=== PATIENT | male | born 1960 | race Caucasian/White ===

== ENCOUNTER 2017-01-04 11:54 | Emergency (ER) | payer OTHER ==
[~2017-01-04] VITALS: Ht 175.3 cm; Wt 75.5 kg
[2017-01-04 11:56] VITALS: BP 155/82; PULSE 94; RESP 20; O2SAT 98
[2017-01-04] MEDS ORDERED: 0.9% Sodium Chloride 1,000 ML IV ONE (12:51)
--- NOTE | 2017-01-04 12:53 | ED.REPORT ---
HPI-Back Pain 40 and Over Date of Service Jan 04, 2017 ED Provider: History of Present Illness: 56-year-old male here for back and abdominal pain. Abdominal pain started a week ago, was seen at . He had a CT and blood work, CAT scan came back essentially negative. Back pain started a week ago it radiates down bilateral legs. He was seen for this in [place] a few days ago diagnosed with sciatica. Dilaudid in a emergency room and sent home. At this point both of them are hurting, his back and his abdomen. He has had some loose stools that he states started today. There was some blood in the stool. He is nauseous and vomiting. He is having urinary urgency but no pain. He is able to eat without vomiting but that intake increases his abdominal pain. His bilateral side pain which movement increases. Movement also increases his low back pain. The radiation down his legs is slightly improved in the last week. He has a history of sciatica his back pain is not new to him. He has not lost control of bowel or bladder but he cannot get a quick enough to get to the bathroom. No known fever. He has a IV drug user asked used meth a week ago. He is homeless but states his home base will be [place] Nursing Notes Stated Complaint: LOW BACK PAIN,VOMITING,ISSUES WITH BLADDER/BOWELS Chief Complaint: Back Pain or Injury Nursing Notes Reviewed: Yes Allergies: Coded Allergies: No Known Allergies (Unverified , 01/04/17) General Time Seen by MD: 12:38 Chief Complaint Generalized pain, Lumbar pain, Flank pain right, Flank pain left Hx Obtained From: Patient, Spouse Arrived By: Walk-in Sudden in Onset?: Yes Onset Occurred: 1 week ago Symptom Duration: 1 week Severity: Current: Severe Severity: Maximum: Severe Recent Healthcare: Recent doctor visit Similar Sx Previous: Yes Risk Factors Risk Notes: IV drug use Past Medical History Past Medical History Notes: sciatica Review of Systems Constitutional: Denies: Chills, Fatigue, Fever Respiratory: Denies: Dyspnea on exertion Cardiovascular: Denies: Chest pain GI: Reports: Abdominal pain, Diarrhea, Hematochezia, Nausea, Vomiting, Denies: Constipation Male: Reports Flank pain, Reports Urinary frequency, Reports Urinary urgency , Denies Dysuria, Denies Testicular pain Musculoskeletal: Reports: Back pain Complete sys rev & neg: except as marked. Physical Exam Initial Vital Signs Vital Signs (First) Date Time Temp Pulse Resp B/P Pulse Ox O2 Delivery O2 Flow Rate FiO2 01/04/17 11:56 36.8 94 20 155/82 98 Room Air Initial VS: Vital signs normal General/Constitutional: Awake, Alert Distress / Hydration: Positive: Distress mild Respiratory / Chest: Breath sounds NL, Breath sounds = bilat, No respiratory distress, No rales, No rhonchi, No wheezing Cardiovascular: Heart rate NL, Regular rhythm, Heart sounds NL, No murmurs, Peripheral circulation NL Abdomen: Atraumatic, Soft, No guarding, No rebound, BS normoactive, No hernia, No palpable mass, No pulsatile mass Tenderness/Guarding/Rebound: Positive: Tender LLQ... (Severe), Tender LUQ... ( Severe), Tender RLQ... (Severe), Tender RUQ... (Severe), Tender epigastric, Tender periumbilical 2 external hemorrhoids present, mild guiac positive Back: Atraumatic, Inspection NL, Full range of motion, Painless range of motion , No midline vertebral tend, No paraspinal tenderness, No muscle spasm, Straight leg raise neg, No CVA tenderness left musculature lower lumbar tender LE strenght equal bilat. patellar reflexes 3+ intact bilat. Neurologic: Oriented X3, Speech NL, No motor deficits, No sensory deficits, Reflexes equal bilat Neck: Atraumatic, Supple, No meningismus, Full range of motion, No swelling, Non-tender, No midline vertebral tend, No masses, No crepitus Lower Extremity / Pelvis / MS: Inspection NL, No swelling, Non-tender, No erythema, No deformity, Neurologic intact, Vascular intact, No edema Skin: Color NL, Warm, Dry, Turgor NL Rectum / Perineum Abnl: Positive: Hemorrhoid external rectal tone intact Head / Eyes: Atraumatic, Normocephalic, PERRL, EOMI Interpretation & Diagnostics Interpretation & Diagnostics: PROCEDURE: CT ABDOMEN AND PELVIS WITH CONTRAST ([id number]) INDICATIONS: abd and low back pain TECHNIQUE: After the administration of intravenous contrast, 5 mm thick sections acquired from the diaphragm to the symphysis. 5 mm coronal and sagittal reformats were acquired. For radiation dose reduction, the following was used: automated exposure control, adjustment of mA and/or kV according to patient size. COMPARISON: None. FINDINGS: Image quality: Excellent. ABDOMEN: Lung bases: Right basilar atelectasis. Heart size is normal. There is a small hiatal hernia. Solid organs: Liver and spleen are normal in size and enhancement. Gallbladder is normal. Biliary system is non dilated. Pancreas enhances normally. No adrenal nodules. Kidneys demonstrate normal size and enhancement, without hydronephrosis. Peritoneum and bowel: A large amount of stool is present in colon. Bowel loops demonstrate normal wall thickness and caliber. No free air. Appendix is normal. A small amount of free fluid is present. Nodes and vessels: No retroperitoneal or mesenteric adenopathy by size criteria. Aorta and inferior vena cava are normal in size. Miscellaneous: No ventral hernias. PELVIS: Genitourinary: Bladder wall thickness is normal. There is a small amount of free fluid in pelvis. Miscellaneous: No inguinal hernias or adenopathy. Bones: No suspicious bony lesions. No vertebral body compression fractures. IMPRESSION: 1. A small moderate free fluid is present, which is an abnormal finding. No inflammatory etiology identified. No evidence for small bowel obstruction. 2. Large amount of stool in colon. Lab Results Interpretation Result Diagram: 01/04/17 1315 01/04/17 1315 Test 01/04/17 13:15 01/04/17 14:15 White Blood Count 10.3th/mm3 (3.8-10.1) Red Blood Count 4.22mil/mm3 (4.40-5.80) Hemoglobin 12.8g/dL (13.8-17.2) Hematocrit 37.2% (41.0-50.0) Mean Corpuscular Volume 88.2fL (81-100) Mean Corpuscular Hemoglobin 30.3pg (27.0-35.0) Mean Corpuscular Hemoglobin Concent 34.4% (32.0-37.0) Red Cell Distribution Width 14.8% (12.3-15.4) Platelet Count 554bil/L (150-400) Neutrophils (%) (Auto) 80.8% (40-74) Lymphocytes (%) (Auto) 8.7% (14-46) Monocytes (%) (Auto) 8.8% (4-12) Eosinophils (%) (Auto) 0.6% (0-5) Basophils (%) (Auto) 0.3% (0-3) Sodium Level 137mEq/L (134-144) Potassium Level 3.5mEq/L (3.5-5.2) Chloride Level 93mEq/L (97-108) Carbon Dioxide Level 29mmol/L (18-29) Blood Urea Nitrogen 9mg/dL (6-24) Creatinine 0.71mg/dL (0.76-1.27) Estimat Glomerular Filtration Rate 122mL/min (>59) Glucose Level 126mg/dL (60-99) Lactic Acid Level 1.6mmol/L (0.4-2.0) Calcium Level 9.1mg/dL (8.5-10.1) Magnesium Level 2.2mg/dL (1.6-2.6) Total Bilirubin 0.5mg/dL (0.0-1.2) Aspartate Amino Transf (AST/SGOT) 24U/L (0-50) Alanine Aminotransferase (ALT/SGPT) 29U/L (0-44) Alkaline Phosphatase 78U/L (25-150) Total Protein 7.5g/dL (6.4-8.4) Albumin 3.0g/dL (3.4-5.0) Lipase 26U/L (13-60) Hold Carpenter Top Tube Received (Received) Urine Color Yellow (YELLOW) Urine Appearance Clear (CLEAR,HAZY) Urine pH 8.0 (5.0-8.0) Urine Specific [place] <1.005 (1.003-1.035) Urine Protein Tracemg/dL (NEG,TRACE) Urine Glucose (UA) Negativemg/dL (NEGATIVE) Urine Ketones Negativemg/dL (NEGATIVE) Urine Occult Blood Negative (NEGATIVE) Urine Nitrite Negative (NEGATIVE) Urine Bilirubin Negative (NEGATIVE) Urine Urobilinogen Normalmg/dL (NORMAL) Urine Leukocyte Esterase Negative (NEGATIVE) Urine RBC 0-2/hpf (0-2) Urine WBC 0-5/hpf (0-5) Urine Epithelial Cells Occasional/hpf (NONE-MOD) Urine Crystals Amorphous urates (NONE Urine Bacteria None/hpf (NONE-FEW) Urine Hyaline Casts None/lpf (NONE) Urine Granular Casts None seen (NONE SEEN) Urine Waxy Casts None seen (NONE SEEN) Urine Red Blood Cell Casts None seen (NONE SEEN) Urine White Blood Cell Casts None seen (NONE SEEN) Urine Mucus None seen (None Seen) Urine Trichomonas None seen (NONE SEEN) Urine Yeast None (NONE SEEN) Urinalysis Comment None Urine Culture Reflexed Not indicated Urine Opiates Screen Negative Urine Methadone Screen Negative Urine Barbiturates Screen Negative Urine Amphetamines Screen Negative Urine Benzodiazepines Screen Negative Urine Cocaine Metabolite Screen Negative Urine Cannabinoids Screen Negative Re-Eval/Medical Decision Med Decision/Clinical Course CT shows free fluid in abdomen small amount this is unchanged from his previous CAT scan. 1850- Discussed case with Dr. Carter in ER. Patient now has a fever 100.4. He lost control of the bladder while Dr. Carter was in the room evaluating him. MRI was ordered. Dr carter assumes care 2149, awaiting MRI. Radha Paulino Jan 04, 2017 12:53
[2017-01-04] MEDS ORDERED: Ondansetron 2 mg/mL 2 mL Inj IVPUSH ONE (12:55)
[2017-01-04 13:28] LABS: BASOPHILS % (AUTO) 0.3 % (0-3); EOSINOPHILS % (AUTO) 0.6 % (0-5); MONOCYTES % (AUTO) 8.8 % (4-12); Mean Corpuscular Hemoglobin 30.3 pg (27.0-35.0); Mean Corpuscular Volume 88.2 fL (81-100); NEUTROPHILS % (AUTO) 80.8 % (40-74); Platelet Count 554 bil/L (150-400)
[2017-01-04 13:58] LABS: Magnesium 2.2 mg/dL (1.6-2.6)
[2017-01-04] MEDS ORDERED: HYDROmorphone 1 mg/mL Inj IVPUSH ONE ×3 (14:30→20:40)
[2017-01-04 16:43] VITALS: BP 157/86; PULSE 94; RESP 17; O2SAT 94
[2017-01-04 17:13] LABS: APPEARANCE,URINE CLEAR (CLEAR,HAZY); COLOR,URINE YELLOW (YELLOW); OCCULT BLOOD,URINE NEGATIVE (NEGATIVE); UROBILINOGEN,URINE NORMAL (NORMAL)
--- NOTE | 2017-01-04 17:59 | DRSVH ---
PROCEDURE: CT ABDOMEN AND PELVIS WITH CONTRAST ([id number]) INDICATIONS: Abdominal and low back pain. TECHNIQUE: After the administration of intravenous contrast, 5 mm thick sections acquired from the diaphragm to the symphysis. 5 mm coronal and sagittal reformats were acquired. For radiation dose reduction, the following was used: automated exposure control, adjustment of mA and/or kV according to patient siz e. COMPARISON: None. FINDINGS: Image quality: Excellent. ABDOMEN: Lung bases: Right basilar atelectasis. Heart size is normal. There is a small hiatal hernia. Solid organs: Liver and spleen are normal in size and enhancement. Gallbladder is normal. Biliary system is non dilated. Pancreas enhances normally. No adrenal nodules. Kidneys demonstrate normal size, without hydronephrosis. Kidneys may have subtle striated enhancement. Peritoneum and bowel: A large amount of stool is present in colon. Bowel loops demonstrate normal wa ll thickness and caliber. No free air. Appendix is normal. A small amount of free fluid is present. Nodes and vessels: No retroperitoneal or mesenteric adenopathy by size criteria. Aorta and inferior vena cava are normal in size. Miscellaneous: No ventral hernias. PELVIS: Genitourinary: Bladder wall thickness is normal. There is a small amount of free fluid in pelvis. Miscellaneous: No inguinal hernias or adenopathy. Bones: No suspicious bony lesions. No vertebral body compression fractures. IMPRESSION: 1. A small small free fluid is present, which is an abnormal finding. No inflammatory etiology identi fied. No evidence for small bowel obstruction. 2. Large amount of stool in colon. 3. Equivocal striated enhancement in kidneys bilaterally. Recommend clinical correlation for urinary tract infection and early pyelonephritis. 4. Small hiatal hernia. Dictated by: Karon Alvarez M.D. on 01/04/2017 at 17:58 Transcribed by: DREW on 01/04/2017 at 18:00 Approved by: Karon Alvarez M.D. on 01/04/2017 at 22:34
[2017-01-04 18:52] VITALS: BP 131/67; PULSE 78; RESP 16; O2SAT 98
[2017-01-04 21:45] VITALS: BP 149/80; PULSE 104; RESP 17; O2SAT 95
[2017-01-05 00:52] VITALS: BP 154/84; PULSE 70; RESP 18; O2SAT 96
[2017-01-05] MEDS ORDERED: 0.9% Sodium Chloride 1,000 ML IV ONE (00:57)
[2017-01-05] MEDS ORDERED: Cefepime Inj 2,000 MG in Dextrose 5% Minibag Plus 100 ML IV ONE (01:00)
[2017-01-05] MEDS ORDERED: Vancomycin Dose per Pharmacist XX ONE (01:00)
[2017-01-05] MEDS ORDERED: HYDROmorphone 1 mg/mL Inj IVPUSH ONE ×2 (01:25→01:30)
[2017-01-05] MEDS ORDERED: Vancomycin Inj 1,500 MG in 0.9% Sodium Chloride 500 ML IV ONE (01:30)
[2017-01-05 02:53] VITALS: BP 141/84; PULSE 90; RESP 18; O2SAT 97
--- NOTE | 2017-01-05 08:18 | DRSVH ---
PROCEDURE: MRI LUMBAR SPINE WITH AND WITHOUT CONTRAST ([id number]) INDICATIONS: Back pain, fever, iv drug user, loss of bladder. TECHNIQUE: Noncontrast sagittal T1 spin echo and T2 fast spin echo, sagittal STIR, axial T1 and T2 fast spin ech o through the lumbar spine. In cases with scoliosis, additional coronal T2 fast spin echo may be per formed. After the administration of contrast, sagittal and axial T1 spin echo with fat saturation th rough the lumbar spine. COMPARISON: None. FINDINGS: Preliminary report by shift lab technician radiology Image quality: Excellent. Alignment and curvature: There is dextroconvex scoliosis with mild retrolisthesis at L1-2 and L2-3, anterolisthesis L4-5 and retrolisthesis L5-S1. Marrow: Marked bone marrow edema and post contrast-enhancement in the L2 and L3 vertebral segments. Spinal cord: Conus medullaris terminates at the L1 level. Visualized spinal cord demonstrates louise l signal, without suspicious enhancement. There is however marked increased T2 signal within the L2-3 disc but without abnormal enhancement. Posterior to the disc is an epidural fluid collection showing rim enhancement consistent with abscess approximately 5 x 6 mm x 2 cm in length. There is additional dural enhancement above and below this level, extending behind the vertebral bodies from L1-L4. Paraspinous soft tissues: Paravertebral edema and abnormal enhancement is evident around the L2-3 dis c level, left greater than right, involving the left psoas muscle. No distinct paraspinous abscess.. L1-L2: Disc degeneration with broad-based annular bulge. The findings create mild central canal and bilateral foraminal stenosis. L2-L3: Disc narrowing with increased T2 signal throughout the disc but no abnormal enhancement to ind icate discitis. Epidural abscess posterior to the disc level again noted. There is secondary moderate central canal stenosis, mild right foraminal stenosis and moderate left foraminal stenosis. L3-L4: Disc degeneration with broad-based annular bulge and facet arthropathy. There is moderate cent ral canal and moderately severe bilateral foraminal stenosis.. L4-L5: Disc degeneration with broad-based annular bulge and facet arthropathy. There is moderate cent ral canal stenosis. Moderate right and mild left foraminal stenosis. L5-S1: Disc degeneration with broad-based annular bulge. Bilateral facet arthropathy. There is mild c entral canal stenosis and moderate bilateral foraminal stenosis. IMPRESSION: 1. Scoliosis and multilevel malalignment increasing mechanical stenoses at multiple levels. 2. Epidural abscess posterior to the L2-3 disc level with probable osteomyelitis of L2 and L3 vertebr al bodies. Prominent edema in the paraspinous region at that level, left greater than right. 3. Multilevel degenerative disc disease creating mild to moderate central canal and foraminal stenosi s as described by level above. Findings are concordant with the preliminary report. Dictated by: Norris Colon M.D. on 01/05/2017 at 7:53 Approved by: Norris Colon M.D. on 01/05/2017 at 8:16
== END 2017-01-05 02:45 | disposition short-term general hospital (02) ==
LOC: SED 11:54 → UNDOADMOB 23:31 → OSC 23:31 → SED 01-05 02:45
DX: M54.5 Low back pain (principal); R10.9 Unspecified abdominal pain; R50.9 Fever, unspecified; R32 Unspecified urinary incontinence
CPT/HCPCS: 36415; 72158; 74177; 80053; 81000; 83605; 83690; 83735; 85025; 87040; 96361; 96374; 96375; 96376; 99285; A9585; G0480; J1170; J1885; J2405; J7030; Q9967

== ENCOUNTER 2017-01-23 08:32 | Emergency (ER) | payer OTHER ==
[~2017-01-23] VITALS: Ht 175.3 cm; Wt 75.5 kg
--- NOTE | 2017-01-23 08:33 | ED.REPORT ---
HPI-General Illness Date of Service Jan 23, 2017 ED Provider: Vivek Coto Patient is a 56 year old male with a hx of IV drug use and a recently diagnosed epidural abscess who presents to the ED via EMS for low grade fever and altered mental status. Per , he has been having hallucinations. He denies nausea, vomiting, or any other symptoms. He reports he was discharged 2 days ago from [facility] s/p a biopsy of his abscess. He was put on moxifloxacin and gabapentin. Per records, he was diagnosed with findings of osteomyelitis/discitis with epidural abscess at the L1/2 level, as well as significant degenerative disease throughout on January 04 (19 days ago) in this department. He denies meth use since being discharged. Nursing Notes Stated Complaint: BACK PAIN Nursing Notes Reviewed: Yes Allergies: Coded Allergies: No Known Allergies (Unverified , 01/23/17) General Time Seen by MD: 08:38 Chief Complaint Altered mental status Hx Obtained From: Patient, EMS Arrived By: Ambulance Sudden in Onset?: Yes Onset Occurred: Onset unknown Recent Healthcare: Recent doctor visit, Recent hospitalization, Previous surgery Past Medical History Past Medical History Notes: sciatica Past Medical History Epidural abscess Past Surgical History Epidural abscess biopsy Smoking History Current Every Day Smoker Social History Alcohol Use: "Social" Drug Use: IV drugs, Meth Other Social History: Smokeless tobacco, , Local resident Ambulatory Status Independent Review of Systems Full Review of Systems Constitutional: Reports: Fever GI: Denies: Nausea, Vomiting Psychiatric: Reports: Change mental status Complete sys rev & neg: except as marked. Physical Exam Vital Signs Vital Signs Date Time Temp Pulse Resp B/P Pulse Ox O2 Delivery O2 Flow Rate FiO2 01/23/17 12:31 88 18 138/76 96 Room Air 01/23/17 10:12 109 15 133/78 93 Room Air 01/23/17 08:51 95 20 118/76 96 Room Air 01/23/17 08:37 36.8 98 22 119/68 95 Room Air Initial VS: Reviewed, Vital signs normal Head / Eyes: Atraumatic, Normocephalic Neck: Full range of motion Respiratory: No respiratory distress Cardiovascular: Regular rate & rhythm, Heart sounds normal Skin: Warm, Dry Psychiatric: Mood/affect normal, Behavior normal, Normal thought content General/Constitutional: Awake, Alert, No acute distress Back: Inspection NL No redness or warmth. No obvious signs of infection. Neurologic: Oriented X3, Speech NL no obvious neurologic deficits moves all 4 extremities, no focal weakness face symmetric Interpretation & Diagnostics Lab Results Interpretation Result Diagram: 01/23/17 0905 01/23/17 0905 Test 01/23/17 09:05 01/23/17 10:10 White Blood Count 9.1th/mm3 (3.8-10.1) Red Blood Count 3.67mil/mm3 (4.40-5.80) Hemoglobin 11.0g/dL (13.8-17.2) Hematocrit 32.5% (41.0-50.0) Mean Corpuscular Volume 88.6fL (81-100) Mean Corpuscular Hemoglobin 30.0pg (27.0-35.0) Mean Corpuscular Hemoglobin Concent 33.8% (32.0-37.0) Red Cell Distribution Width 14.5% (12.3-15.4) Platelet Count 481bil/L (150-400) Neutrophils (%) (Auto) 76.4% (40-74) Lymphocytes (%) (Auto) 11.8% (14-46) Monocytes (%) (Auto) 6.6% (4-12) Eosinophils (%) (Auto) 4.5% (0-5) Basophils (%) (Auto) 0.4% (0-3) Sodium Level 138mEq/L (134-144) Potassium Level 4.4mEq/L (3.5-5.2) Chloride Level 102mEq/L (97-108) Carbon Dioxide Level 24mmol/L (18-29) Blood Urea Nitrogen 7mg/dL (6-24) Creatinine 0.73mg/dL (0.76-1.27) Estimat Glomerular Filtration Rate 118mL/min (>59) Glucose Level 112mg/dL (60-99) Lactic Acid Level 1.5mmol/L (0.4-2.0) Calcium Level 9.3mg/dL (8.5-10.1) Magnesium Level 1.8mg/dL (1.6-2.6) Total Bilirubin 0.3mg/dL (0.0-1.2) Aspartate Amino Transf (AST/SGOT) 13U/L (0-50) Alanine Aminotransferase (ALT/SGPT) 10U/L (0-44) Alkaline Phosphatase 83U/L (25-150) Total Protein 7.5g/dL (6.4-8.4) Albumin 3.3g/dL (3.4-5.0) Urine Color Straw (YELLOW) Urine Appearance Hazy (CLEAR,HAZY) Urine pH 6.0 (5.0-8.0) Urine Specific [place] 1.015 (1.003-1.035) Urine Protein Negativemg/dL (NEG,TRACE) Urine Glucose (UA) Negativemg/dL (NEGATIVE) Urine Ketones Negativemg/dL (NEGATIVE) Urine Occult Blood Negative (NEGATIVE) Urine Nitrite Negative (NEGATIVE) Urine Bilirubin Negative (NEGATIVE) Urine Urobilinogen Normalmg/dL (NORMAL) Urine Leukocyte Esterase Negative (NEGATIVE) Urine RBC 0-2/hpf (0-2) Urine WBC 0-5/hpf (0-5) Urine Epithelial Cells Occasional/hpf (NONE-MOD) Urine Crystals None seen (NONE SEEN) Urine Bacteria None/hpf (NONE-FEW) Urine Hyaline Casts None/lpf (NONE) Urine Granular Casts None seen (NONE SEEN) Urine Waxy Casts None seen (NONE SEEN) Urine Red Blood Cell Casts None seen (NONE SEEN) Urine White Blood Cell Casts None seen (NONE SEEN) Urine Mucus Present (None Seen) Urine Trichomonas None seen (NONE SEEN) Urine Yeast None (NONE SEEN) Urinalysis Comment None Urine Culture Reflexed Not indicated Lab Results Interpretation: urine tox screen positive for methampphetamines, opiates, TCA's, and amphetamines. ECG Interpretation ECG Interpretation: Sinus rate 92 Left atrial enlargement Time: 09:00 Interpreted by: ED physician X-Ray Chest Interpretation Chest Xray Interpretation: IMPRESSION: No acute cardiopulmonary disease. Nonacute nonunited lateral right clavicle fracture. Dictated by: Douglas Alba M.D. on 01/23/2017 at 8:59 Approved by: Douglas Alba M.D. on 01/23/2017 at 9:00 View: Portable, 1 view Interpretation / Wet Read by: Interpret - Radiologist Re-Eval/Medical Decision Med Decision/Clinical Course I reviewed all of the records I have as well as interviewed the patient carefully and examined him carefully. His back appears normal with no redness or warmth. He says his pain level is similar to the time of discharge a few days ago from [facility]. I spoke with Dr. Jina Delacruz from [facility]'s inpatient medicine team who seemed relatively reassured by the normal vital signs and laboratory testing here though the current white blood cell count is somewhat higher than the discharge value of 5000. I think that the medications prescribed including moxifloxacin are reasonable and appropriate at this time. He has current medications. It seems that most of his complaint relates to the pain that is experiencing for which she says gabapentin and Tylenol are insufficient. I am not willing to prescribe narcotics in this setting given the specialist group having discharged him without same. I recommended he follow up right away for new neurologic symptoms or fever but otherwise follow- up at the outpatient clinic at [facility] as planned in 6 days. He also requests a follow-up provider locally which will be provided. Essentially I do not see any sign of uncontrolled infection at this time. Time of Eval: 10:22 Re-Evaluation/Progress Note: Rechecked patient. Discussed urine tox results. Time of Eval: 12:22 Re-Evaluation/Progress Note: Discussed plan for discharge. Patient understands and agrees with plan. All questions addressed at this time. Consultation : Call Returned at: 11:34 Note: Discussed pt's case with Dr. Jina Delacruz at [facility] for more insight on patient's stay and procedure. Counseled Regarding: Diagnosis, Lab results, Need for follow-up, When/why to return to ED Discharge & Departure Primary Impression: Epidural abscess Disposition: Home Discharge Condition All VS Reviewed: Yes Condition: Stable Patient Instructions: Abscess (ED) Additional Instructions: I believe that the treatment you are currently prescribed is appropriate. See no evidence of infection out of control. Take all of the medications, especially the moxifloxacin, as directed. Also up at the clinic in [facility] next week as planned. Follow up locally when you are able. Referrals: [facility]CP (PCP) Lesa Moses MD Scribe Attestation Portions of this note were transcribed by Duyen Livingston. I, Dr. Coto personally performed the history, physical exam and medical decision-making; I reviewed and confirmed the accuracy of the information in the transcribed note. Signed by: Duyen Livingston 01/23/2017, 1223 copies to: Lesa Moses MD, Kirk H MD Jan 23, 2017 08:33 DUYEN LIVINGSTON Jan 23, 2017 08:48
[2017-01-23 08:37] VITALS: BP 119/68; PULSE 98; RESP 22; O2SAT 95
[2017-01-23 08:51] VITALS: BP 118/76; PULSE 95; RESP 20; O2SAT 96
[2017-01-23] MEDS ORDERED: 0.9% Sodium Chloride 1,000 ML IV ONE ×2 (08:52→10:40)
[2017-01-23 09:17] LABS: BASOPHILS % (AUTO) 0.4 % (0-3); EOSINOPHILS % (AUTO) 4.5 % (0-5); MONOCYTES % (AUTO) 6.6 % (4-12); Mean Corpuscular Volume 88.6 fL (81-100); NEUTROPHILS % (AUTO) 76.4 % (40-74); Platelet Count 481 bil/L (150-400)
[2017-01-23 09:46] LABS: Magnesium 1.8 mg/dL (1.6-2.6)
--- NOTE | 2017-01-23 10:01 | DRSVH ---
PROCEDURE: X-RAY CHEST ONE VIEW, PORTABLE ([id number]) INDICATIONS: 56-year-old male with altered mental status. TECHNIQUE: One view of the chest was acquired. COMPARISON: None. FINDINGS: Surgical changes and devices: None. Lungs and pleura: No pleural effusions or pneumothorax. Lungs are clear. Lung volumes are decrease d. Mediastinum: Mediastinal contours appear normal. Heart size is normal. Bones and chest wall: No suspicious bony lesions. Nonacute nonunited lateral right clavicle fractur e is present. Overlying soft tissues appear unremarkable. IMPRESSION: No acute cardiopulmonary disease. Nonacute nonunited lateral right clavicle fracture. Dictated by: Douglas Alba M.D. on 01/23/2017 at 8:59 Approved by: Douglas Alba M.D. on 01/23/2017 at 9:00
[2017-01-23 10:12] VITALS: BP 133/78; PULSE 109; RESP 15; O2SAT 93
[2017-01-23 11:00] LABS: APPEARANCE,URINE HAZY (CLEAR,HAZY); COLOR,URINE STRAW (YELLOW); OCCULT BLOOD,URINE NEGATIVE (NEGATIVE); UROBILINOGEN,URINE NORMAL (NORMAL)
[2017-01-23 12:31] VITALS: BP 138/76; PULSE 88; RESP 18; O2SAT 96
== END 2017-01-23 12:37 | disposition home or self-care (01) ==
LOC: SED 08:32
DX: G06.2 Extradural and subdural abscess, unspecified (principal); R41.82 Altered mental status, unspecified; F17.200 Nicotine dependence, unspecified, uncomplicated
CPT/HCPCS: 36415; 71010; 80053; 81000; 81002; 83605; 83735; 85025; 93005; 96360; 96361; 99285; J7030

== ENCOUNTER 2017-01-26 21:11 | Emergency (ER) | payer OTHER ==
[~2017-01-26] VITALS: Ht 175.3 cm; Wt 75.5 kg
[2017-01-26 21:21] VITALS: BP 114/80; PULSE 108; RESP 20; O2SAT 96
--- NOTE | 2017-01-26 22:13 | ED.REPORT ---
HPI-General Illness Date of Service Jan 26, 2017 ED Provider: Gerry Tirado MD Pt is a 56 year old male who presents to the ED with concerns for back pain secondary to an abscess. he reports that he is still on his antibiotics. Pt reports that he was discharged last Thursday, and has been having worsening pain since then. He states that he has been experiencing bowel and bladder incontinence. He describes the pain as a sharp pain his lower back radiating down his bilateral legs, associated with weakness. The pain is alleviated with laying flat. His partner reports that he lost consciousness in the shower last night.He has no other complaints. Nursing Notes Stated Complaint: BACK PAIN Chief Complaint: Back Pain or Injury Nursing Notes Reviewed: Yes Allergies: Coded Allergies: No Known Allergies (Unverified , 01/23/17) General Time Seen by MD: 21:58 Chief Complaint Back pain Hx Obtained From: Patient Arrived By: Walk-in Sudden in Onset?: Yes Onset Occurred: More than a week ago... Symptom Duration: Since onset Location: : Back Quality: Painful Severity: Current: Moderate Severity: Maximum: Severe Similar Sx Previous: Yes Past Medical History Past Medical History Notes: sciatica Past Medical History Epidural abscess Past Surgical History Epidural abscess biopsy Smoking History Current Every Day Smoker Social History Alcohol Use: "Social" Drug Use: IV drugs, Meth Other Social History: Smokeless tobacco, , Local resident Ambulatory Status Independent Review of Systems Full Review of Systems Constitutional: Reports: Weakness - generalized, Denies: Chills, Fever, Malaise Respiratory: Denies: Non-productive cough, Shortness of breath, Wheezing Cardiovascular: Reports: Syncope, Denies: Chest pain GI: Denies: Abdominal pain, Nausea, Vomiting Male: Denies Dysuria, Denies Flank pain Musculoskeletal: Reports: Back pain, Extremity pain, Denies: Neck pain Skin: Denies Diaphoresis Neurologic: Reports: Bladder dysfunction, Bowel dysfunction, Weakness Complete sys rev & neg: except as marked. Physical Exam Nursing note and vitals reviewed. Constitutional: Well-developed, well-nourished. Not diaphoretic. Head: Normocephalic and atraumatic. Mouth/Throat: Oropharynx is clear and moist. No oropharyngeal exudate. Eyes: EOM are normal. Pupils are equal, round, and reactive to light. Neck: Supple, no tracheal deviation. Back: No point tenderness Cardiovascular: Normal rate, regular rhythm. Equal and intact distal pulses throughout. Pulmonary/Chest: Effort normal and breath sounds normal. No respiratory distress. Abdominal: Soft. No distension. There is no tenderness, rebound, or guarding. Bowel sounds present. Musculoskeletal: Range of motion grossly intact, moving all extremities. No edema or tenderness appreciated. Neurological: AOx3. Grossly nonfocal exam. Strength and sensation intact and equal to bilateral upper and lower extremities. Skin: Warm and dry, no rashes or pallor appreciated. Psychiatric: Appropriate mood and affect. Behavior appears normal. Vital Signs Vital Signs Date Time Temp Pulse Resp B/P Pulse Ox O2 Delivery O2 Flow Rate FiO2 01/26/17 21:21 108 20 114/80 96 Room Air Initial VS: Reviewed Interpretation & Diagnostics Lab Results Interpretation Test 01/26/17 21:15 01/27/17 00:17 Hold Purple Top Tube Received (Received) Hold Blue Top Tube Received (Received) Hold [place] Top Tube Received (Received) Re-Eval/Medical Decision Med Decision/Clinical Course 56-year-old male presenting to the ED for evaluation of worsening back pain in the setting of recent epidural abscess. Now with bowel and bladder incontinence , similar to previous. He was recently discharged from after an extended stay. He states that he was doing better until recently, and decided to come in today because of the worsening pain and bowel/bladder incontinence. Labs and an MRI were ordered. He is already on moxifloxacin as an outpatient and given that he is not hemodynamically unstable at this time, plan to obtain an MRI before initiating antibiotics as neurosurgery/spine has previously wanted to hold off on broad antibiotic therapy. Patient care was transferred to Dr. Samuel at 12:20 AM. With MRI and laboratory studies pending. Suspect that he may need transfer pending these results. Source of Hx: Old records Time of Eval: 23:57 Re-Evaluation/Progress Note: Pt is rechecked and informed of his diagnosis and the need to transfter him at this time. He understands and agrees, all questions are addressed. Counseled Regarding: Diagnosis, Lab results, Need for transfer Discharge & Departure Primary Impression: Epidural abscess Disposition: Transfer, Acute Care Facility Discharge Condition All VS Reviewed: Yes Condition: Stable Referrals: [facility] Scribe Attestation Portions of this note were transcribed by Alem Palencia. I, Dr. Tirado personally performed the history, physical exam and medical decision-making; I reviewed and confirmed the accuracy of the information in the transcribed note. Signed by: Santiago Soria, 01/26/2017 [Time]. copies to: [facility] Gerry Tirado MD Jan 26, 2017 22:13 SYED PALENCIA Jan 26, 2017 23:11
[2017-01-27 00:22] LABS: BASOPHILS % (AUTO) 0.2 % (0-3); EOSINOPHILS % (AUTO) 6.8 % (0-5); MONOCYTES % (AUTO) 7.7 % (4-12); Mean Corpuscular Hemoglobin 29.5 pg (27.0-35.0); Mean Corpuscular Volume 85.1 fL (81-100); NEUTROPHILS % (AUTO) 68.2 % (40-74); Platelet Count 645 bil/L (150-400)
[2017-01-27 00:29] LABS: INR 0.93 ratio
[2017-01-27 00:42] VITALS: BP 115/83; PULSE 97; RESP 18; O2SAT 95
[2017-01-27 01:01] LABS: ERYTHROCYTE SEDIMENTATION RATE 80 mm/hr (0-30)
[2017-01-27 01:12] LABS: APPEARANCE,URINE CLEAR (CLEAR,HAZY); COLOR,URINE YELLOW (YELLOW); OCCULT BLOOD,URINE NEGATIVE (NEGATIVE); PH,URINE 5.5 (5.0-8.0); UROBILINOGEN,URINE NORMAL (NORMAL)
[2017-01-27] MEDS: HYDROmorphone 0.5 mg/0.5 mL iSecure Syringe IVPUSH PRN ×3 (01:31→07:05)
[2017-01-27 03:30] VITALS: BP 120/60; PULSE 74; RESP 16; O2SAT 94
[2017-01-27 06:11] VITALS: BP 111/78; PULSE 104; RESP 16; O2SAT 95
[2017-01-27] MEDS ORDERED: HYDR2TAB27 PO (09:08)
[2017-01-27 09:24] VITALS: BP 134/99; PULSE 101; O2SAT 99
--- NOTE | 2017-01-27 09:28 | DRSVH ---
PROCEDURE: CT LUMBAR SPINE WITH CONTRAST ([id number]) INDICATIONS: assess spinal abscess, unable to do MRI TECHNIQUE: After the administration of intravenous Isovue contrast, 3 mm thick sections acquired through the lev els of interest. Sagittal and coronal reformats were then constructed. For radiation dose reduction , the following was used: automated exposure control. COMPARISON: MRI lumbar spine 01/04/2017 FINDINGS: Preliminary report by health facilities surveyor radiology Image quality: Excellent. Bones: Marked destruction of cortical endplates has developed at the L2-3 disc level since last exam, consistent with discitis and osteomyelitis.. Circumferential paraspinous inflammatory tissue is agai n noted at that level. On series 3/images 37-40, there is hypodensity within the right psoas muscle t hat could represent an early abscess. These soft tissue hypodensities are also visible on sagittal se annamarie 5, images 37 and 38, as well as coronal series 4/image 13. Within the spinal canal, extending fr om the L1-2 disc level to the L3-4 disc level, is an anterior epidural soft tissue mass consistent wi th epidural abscess. This causes severe central canal stenosis at the L2-3 disc level. Underlying scoliosis, multilevel malalignment and diffuse discopathy and facet arthropathy creating c entral canal and foraminal stenosis, most of which appears unchanged from prior MRI report. IMPRESSION: 1. Discitis/osteomyelitis at the L2-3 level is persistent with considerable bony destruction and frag mentation since the recent prior MRI exam. Severe spinal stenosis at the L2-L3 level is suspected sec ondary to anterior epidural abscess. 2. Considerable paraspinous inflammation is again noted. There is likely developing soft tissue absce ss in the right psoas muscle. 3. Scoliosis, malalignment, degenerative disc disease, facet arthropathy with multilevel central nicolas l and foraminal stenoses as before. Findings are concordant with the preliminary report. Dictated by: Norris Colon M.D. on 01/27/2017 at 9:01 Approved by: Norris Colon M.D. on 01/27/2017 at 9:26
[2017-01-27] MEDS ORDERED: oxyCODONE-Acetamin 5-325 mg Tablet PO ONE (10:00)
== END 2017-01-27 09:25 | disposition short-term general hospital (02) ==
LOC: EDBD 21:11 → SED 21:11 → EDUNIT# 21:11 → SED 01-27 09:25
DX: G06.2 Extradural and subdural abscess, unspecified (principal); R53.1 Weakness; F17.200 Nicotine dependence, unspecified, uncomplicated
CPT/HCPCS: 36415; 72132; 80053; 81000; 83605; 83690; 83735; 85025; 85610; 85651; 96374; 96375; 96376; 99285; J1170; J2250; Q9967